=== PATIENT | male | born 1985 | race Caucasian/White ===

== ENCOUNTER 2016-07-30 | Emergency (ER) | payer MEDICAID ==
[~2016-07-30] VITALS: Ht 167.6 cm; Wt 75.7 kg
[2016-07-30 01:58] LABS: Basophils # (auto) 0 uL; Basophils % (auto) 0.3 % (0.0-2.0); Eosinophils # (auto) 0.1 uL; Eosinophils % (auto) 0.8 % (0.0-7.0); Hemoglobin 15.6 g/dL (13.5-17.5); Lymphocytes # (auto) 1.2 uL; Lymphocytes % (auto) 18.6 % (10.0-50.0); Mean Corpuscular Hemoglobin 32.4 pg (28.0-32.0); Mean Corpuscular Hgb Conc. 33.2 g/dL (32.0-36.0); Mean Corpuscular Volume 97.4 fL (80.0-100.0); Mean Platelet Volume 6.9 fL (7.4-10.4); Monocytes # (auto) 0.8 uL; Monocytes % (auto) 12.1 % (0.0-12.0); Neutrophils # (auto) 4.5 uL; Neutrophils % (auto) 68.2 % (37.0-80.0); Platelet Count (auto) 420 10^3/uL (140-450); Red Cell Distribution Width 13.1 % (11.6-16.0); White Blood Cell 6.7 10^3/uL (4.4-10.8)
[2016-07-30 02:11] LABS: Urine RBC None Seen /hpf (0 - 3)
[2016-07-30 02:28] LABS: Albumin 3.5 g/dL (3.4-5.0); Anion Gap 12 (5-15); Aspartate Aminotransferase 213 U/L (15-37); BUN/Creatinine Ratio 10.3; Blood Urea Nitrogen 8 mg/dL (7-18); Carbon Dioxide 27 mmol/L (21-32); Chloride 105 mmol/L (98-107); GFR African American 148 mL/min; GFR Non-African American 123 mL/min; Glucose 91 mg/dL (74-106); Potassium 3.4 mmol/L (3.5-5.1); Salicylate < 1.7 mg/dL (2.8-20.0); Sodium 144 mmol/L (136-145)
[2016-07-30 02:29] LABS: Urine Bilirubin Negative (Negative); Urine Blood Negative /uL (Negative); Urine Color Yellow (Yellow); Urine Glucose Normal (Normal); Urine Hyaline Cast FEW /lpf (0 - 2); Urine Ketone Negative (Negative); Urine Mucus FEW (None Seen); Urine Nitrite Negative (Negative); Urine Squamous Epithelial Cell FEW /hpf (<5); Urine pH 6.5 (5.0-8.0)
[2016-07-30 02:30] LABS: Acetaminophen < 2.0 ug/mL (10-30); Alkaline Phosphatase 120 U/L (45-117); Bilirubin, Total 0.3 mg/dL (0.2-1.0)
[2016-07-30] MEDS ORDERED: THIAMINE INJ 100 MG, MULTIPLE VITAMIN 10 ML, FOLIC ACID 1 MG, MAGNESIUM SULF SDV 50% 8 ... IV ONE ×5 (02:30)
[2016-07-30] MEDS ORDERED: BANANA BAG KIT 1 EA IV ONE (02:32)
[2016-07-30 05:00] VITALS: BP 145/79
== END 2016-07-30 04:24 | disposition home or self-care (01) ==
LOC: ER
DX: F10.129 Alcohol abuse with intoxication, unspecified (principal); F17.210 Nicotine dependence, cigarettes, uncomplicated; F41.9 Anxiety disorder, unspecified; R41.82 Altered mental status, unspecified; F19.10 Other psychoactive substance abuse, uncomplicated; Z59.0 Homelessness; Y90.6 Blood alcohol level of 120-199 mg/100 ml
CPT/HCPCS: 36415; 80053; 80320; 80329; 81001; 85025; 96365; 96366; 99285; G0434; J3411; J3475; J7030